=== PATIENT | male | born 1960 | race Caucasian/White ===

== ENCOUNTER 2019-03-06 15:51 | Emergency (ER) | payer SELFPAY ==
[2019-03-06] MEDS: ONDANSETRON (ODT) 4 MG TAB ODT (17:18)
[2019-03-06] MEDS: KETOROLAC 30 MG INJ IM (17:19)
== END 2019-03-06 18:10 | disposition home or self-care (01) ==
LOC: FTE 15:51
DX: R11.10 Vomiting, unspecified (principal); R07.9 Chest pain, unspecified
CPT/HCPCS: 71045; 74018; 93005; 96372; 99284-25